=== PATIENT | female | born 1995 | race Caucasian/White ===

== ENCOUNTER 2019-05-07 15:25 | Inpatient (IN) | payer MEDICAID, SELFPAY ==
[2019-05-07] VITALS (28 sets, daily range): BP systolic 127–173; BP diastolic 68–122; PULSE 65–96; RESP 16–18; TEMP 35.6–36.7; O2SAT 97–100; BMI 24.6
[2019-05-07] MEDS: Lactated Ringers 1,000 ML 50 ML IV (16:00)
[2019-05-07 16:32] LABS: Hematocrit 46.9 % (37-47); Hemoglobin 15.2 g/dL (12.0-15.0); Mean Corp Hgb Conc 32.4 g/dL (32-36); Mean Corpuscular Hgb 28.3 pg (27.0-32.0); Mean Corpuscular Volume 87.3 fL (81-99); Platelet Count 472 K/mm3 (150-450); RBC Distribution Width CV 14.6 % (11.6-14.6); RBC Distribution Width SD 46.3 fl (35.1-43.9); Red Blood Count 5.37 M/mm3 (4.2-5.4); White Blood Count 14.5 K/mm3 (4.4-11.0)
[2019-05-07] MEDS: Magnesium Sulfate 4gm/100mL 4 GM/100 ML IV.SOLN. IV (17:00)
[2019-05-07] MEDS: Magnesium Sulfate 20 GM/500 ML BAG IV (17:00)
[2019-05-07] MEDS: Sodium Citrate/Citric Acid 30 ML UDC PO (17:04)
[2019-05-07 17:17] LABS: AST(SGOT) 46 U/L (15-37); Alanine Aminotransfer ALT/SGPT 37 U/L (13-56); Creatinine, Serum 0.89 mg/dL (0.55-1.02); EST Glomerular Filtration Rate 81 mL/min (>60); Est Glom Filt Rate - Afr Amer 99 mL/min (>60); Estimated Creatinine Clearance 90.46 ml/min; Uric Acid 10.1 mg/dL (2.6-6.0)
[2019-05-07 17:23] LABS: Rubella IgG < 0.2 IU/mL
[2019-05-07 17:24] LABS: ALB/GLOB Ratio 0.7 RATIO (0.9-2.4); AST(SGOT) 44 U/L (15-37); Alanine Aminotransfer ALT/SGPT 37 U/L (13-56); Alkaline Phosphatase 210 U/L (45-117); Anion Gap 8 (5-15); BUN 18 mg/dL (7-18); Calcium,Total 9.1 mg/dL (8.5-10.1); Chloride 103 mmol/L (98-107); EST Glomerular Filtration Rate 81 mL/min (>60); Est Glom Filt Rate - Afr Amer 98 mL/min (>60); Estimated Creatinine Clearance 89.45 ml/min; Globulin 4.6 g/dL (2.2-4.2); Glucose 76 mg/dL (74-106); Potassium 5.3 mmol/L (3.5-5.1); Protein, Total 7.6 g/dL (6.4-8.2); Sodium Level 134 mmol/L (136-145)
[2019-05-07 17:30] LABS: Color, Urine Yellow (Yellow); Glucose, Dipstick Normal (Normal); Ketone-Dipstick 50 mg/dl (Negative); Leukocyte Esterase-Dipstick 25 /ul (Negative); Nitrite-Dipstick Negative (Negative); Occult Blood-Urine 25 /ul (Negative); Protein-Dipstick 500 mg/dl (Negative); Urine Bilirubin Dipstick Negative (Negative); Urine Clarity Sl. Cloudy (Clear); Urine Urobilinogen Normal (Normal)
[2019-05-07 17:45] LABS: Protein, Urine (Random) 1984.1 mg/dL (<11.9); Protein:Creat Ratio 12324 mg/g CRE (0-200)
[2019-05-07 17:49] LABS: Amphetamine Urine VISTA NEGATIVE (<1000 ng/mL); Barbiturate Urine VISTA NEGATIVE (< 200 ng/mL); Benzodiazepine Urine VISTA NEGATIVE (< 200 ng/mL); Cocaine Urine VISTA NEGATIVE (< 300 ng/mL); Ecstacy Urine VISTA NEGATIVE (< 500 ng/mL); Methadone Urine VISTA NEGATIVE (< 300 ng/mL); PCP Urine VISTA NEGATIVE (< 25 ng/mL); THC Urine VISTA NEGATIVE (< 50 ng/mL); Vista UDS pH Range 6
[2019-05-07 17:58] LABS: Group B Strep DNA By PCR Negative (Negative); Internal Control PASS; Probe Check PASS; Specimen Processing Control PASS
[2019-05-07 17:59] LABS: Bacteria 3+ /hpf (None Seen); Hyaline Cast 0-5 SEEN /lpf (0-5); Mucous, Urine 3+ /hpf (<or=2+); Red Blood Cells-Urine 0-5 SEEN /hpf (0-5); Squamous Epithelial Cells - UA 0-5 SEEN /hpf (5-10); White Blood Cells 0-5 SEEN /hpf (0-5)
--- NOTE | 2019-05-07 18:21 | HP.PCM_ITS ---
- Problem List (1) Severe pre-eclampsia Status: Acute (2) 34 weeks gestation of Status: Acute (3) Non-reassuring status Status: Acute History Date of Admission: 05/07/19 History of this : This is a 23 year-old, G 3, P 2, at 34 weeks gestational age who presented to the office as a new patient. She had been seeing a line camera operator who was managing her . She had known pre-eclampsia with an elevated protein/creatinine ratio. She presented as a new patient to our office for elevated blood pressures in . In the office her blood pressures were severe range. She had a BPP of 2/8. She was sent over to L&D for further management. On L&D she had persistent severe range BP's that were in the 200's/100's. She received 2 doses of IV labetalol, and her blood pressures remained in the severe range. She denied STRONG, vision changes, RUQ pain, nausea, vomiting. FHT showed an isolated deceleration, followed by minimal variability. [place] showed rolling contractions. She denied abd pain or VB. Allergies No Known Allergies Allergy (Verified 05/07/19 15:56) Home Medications: Home Medications Magnesium 400 mg PO DAILY 05/07/19 Pnv No.95/Ferrous Fum/Folic AC [ Vitamin Tablet] 1 tab PO DAILY 05/07/19 Smoking Status: Never smoker Alcohol: None Number of Fetus(es): 1 History Past Pregnancies: Past Pregnancies Delivery Date Name GA/Weeks Outcome Route Weight Infant Gender Labor Length Anesthesia Delivery Location Provider FOB term term Labs: Drawn on admission Expected Delivery Method: JUAN Section Review of Systems Eyes: Denies: Blurred vision, Double vision, Vision Change HEENT: Denies: Head Aches Cardiovascular: Denies: Chest Pain Respiratory: Denies: Shortness of Breath Gastrointestinal: Denies: Abdominal Pain, Nausea, Vomiting Neurological: Denies: Blurred vision, Double vision Physical Exam Vitals: Vital Signs Temp Pulse Resp BP Pulse Ox 97.1 F L 83 16 164/122 H 97 05/07/19 17:00 05/07/19 17:00 05/07/19 17:00 05/07/19 17:00 05/07/19 17:00 General: Alert, No apparent distress HEENT: Atraumatic Abdomen: Soft, Non Tender, Gravid Extremities:: No edema Neurological: Neuro grossly intact [employer]: Normal external genitalia Estimated gestational size: Appropriate for gestational size Assessment/Plan All Active Problems Severe pre-eclampsia (Acute) 34 weeks gestation of (Acute) Non-reassuring status (Acute) This is a 23 year-old, G 3, P 2, at 34 weeks gestational age who presented as a new patient with pre-eclampsia with severe features. BP's were persistently in the severe range after 2 doses of IV labetalol. She had known pre-eclampsia with an elevated p/c ratio. BPP 2/8 and FHT non-reassuring. Decision was made to proceed with an emergent . - IV antihypertensives prn per protocol - Mag gtt for seizure prophylaxis - labs and pre-e labs drawn on admission
--- NOTE | 2019-05-07 18:42 | OP.PCM_ITS ---
Problem List (1) Severe pre-eclampsia Status: Acute (2) 34 weeks gestation of Status: Acute (3) Non-reassuring status Status: Acute Report of Operation Date of Procedure: 05/07/19 Pre-Operative Diagnosis: Pre-eclampsia with severe features at 34 weeks gestation, 2/8 BPP, non-reassuring status, limited care with playback operator Post-Operative Diagnosis: As above Surgery/Procedure Performed:: PLTCS via pfannenstiel incision Description of Surgical Findings:: VFI in vertex position. Clear fluid. Normal appearing uterus, bilateral tubes and bilateral ovaries. Placenta was ragged appearing raising concern for an abruption. Type of Anesthesia:: Spinal Specimen's removed: Placenta Drains: Martinez Estimated Blood Loss (mL): 800 Description of Procedure: Patient was prepped and draped in the usual sterile fashion in the dorsal position with a leftward tilt. Spinal anesthesia was found to be adequate. Scalpel was used to incise the skin using a Pfannenstiel incision. This incision was then carried down to the fascial layer. The fascia was incised in the midline using the scalpel. The fascia was then extended laterally using Avilez scissors. Wesley clamps were then used to elevate the fascia and dissected the fascia bluntly and sharply from the rectus muscles both cephalad and caudad. The rectus muscles were then entered in the midline. The peritoneum was then entered sharply. The peritoneal incision was then extended superiorly and inferiorly with good visualization of the bladder. A bladder blade was placed. A bladder flap was created. A low transverse incision was made on the uterus. Clear fluid was present. Viable female infant was delivered in vertex position without any difficulty. The cord was clamped and cut immediately and she was handed off to the nursery staff. Cord gases were collected. The placenta was manually removed from the uterus and it was very ragged appearing. In looking at the placenta, there was a possible abruption. The placenta was sent to pathology for review. The uterus was exteriorized from the abdomen and cleared of all clot and debris. The uterine incision was then closed in a double layer fashion. Several additional [id number] sutures were placed for hemostasis. The uterus, bilateral ovaries, bilateral tubes were normal-appearing. The uterus was then placed back in the abdomen. The uterine incision was noted to be hemostatic. Arrista was placed over the uterine incision. The peritoneum was then closed in usual fashion. The fascia was then closed in usual fashion. The subcutaneous layer was irrigated. The subcutaneous layer was then closed in usual fashion. And the skin was closed in subcuticular fashion. Patient tolerated the procedure well and was taken to the recovery room in stable condition. Grafts/Implants Used: None - Complications None - Admit VTE Documentation VTE Present on Admission: No VTE Mechan Device Prophylaxis: SCD's VTE Pharm Prophylaxis ordered?: No Delivery Classification: JUAN Gestational age: 34 weeks Type of Anesthesia:: Spinal Special Medications: None Implants Used: None Amniotic Fluid Description: Clear Placenta Disposition: Sent to Pathology Drain: Martinez to straight drain Cord Entanglement: Around neck x 1, loose Nuchal Cord Compression: Without compression Cord Vessel Description: 3 Vessels Infant Gender: Female Antibiotic Given: Ancef 2 grams IV x1 Pt instructed on risks of surgery: Bleeding, Infection, Need for Future C- Sections, Injury to surrounding structure(s) including bowel and bladder Complications: None
[2019-05-07] MEDS: Oxytocin 30 units/NS 500 ml 30 UNITS/500 ML IV.SOLN 167 UNITS IV (19:00)
[2019-05-07] MEDS: Labetalol 100 MG Tablet PO (19:30)
[2019-05-07 19:42] LABS: Chlamydia Trachomatis by PCR Negative (Negative); Neisserai gonorrhoeae by PCR Negative (Negative); Probe Check PASS; Sample Adequacy Control PASS; Specimen Processing Control PASS
--- NOTE | 2019-05-07 19:46 | NURSING ---
Addendum entered by Almaz Lui 05/07/19 19:50: Ancef at 1716 Original Note: anesthesia gave ancef 2gm in OR LR wide open in transport to OR
--- NOTE | 2019-05-07 19:49 | NURSING ---
Per Dr. Rojas no oral fluid restrictions LR to be at 75 while [facility] is running
[2019-05-07] MEDS: hydrALAZINE 20 MG/ML Vial 10 MG IV (20:05)
[2019-05-08] VITALS (71 sets, daily range): BP systolic 118–225; BP diastolic 56–110; PULSE 69–130; RESP 12–20; TEMP 36.3–36.9; O2SAT 95–100
[2019-05-08 00:25] LABS: HIV - WCH Non-Reactive (Nonreactive); Hepatitis B Surface Antigen Non-Reactive (Nonreactive); Hepatitis C Antibody Non-Reactive (Nonreactive)
[2019-05-08 02:21] LABS: Rapid Plasmin Reagin (RPR) NONREACTIVE (NONREACTIVE)
[2019-05-08] MEDS: Magnesium Sulfate 20 GM/500 ML BAG IV ×2 (02:40→12:48)
[2019-05-08 05:50] LABS: Hemoglobin 12.7 g/dL (12.0-15.0); Mean Corp Hgb Conc 32.6 g/dL (32-36); Mean Corpuscular Hgb 28.2 pg (27.0-32.0); Mean Corpuscular Volume 86.5 fL (81-99); Mean Platelet Vol. 10.2 fl (6.2-12.0); Platelet Count 358 K/mm3 (150-450); RBC Distribution Width CV 14.7 % (11.6-14.6); RBC Distribution Width SD 46.3 fl (35.1-43.9); Red Blood Count 4.51 M/mm3 (4.2-5.4); White Blood Count 16.5 K/mm3 (4.4-11.0)
[2019-05-08] MEDS: Lactated Ringers 1,000 ML 100 ML IV (08:10)
--- NOTE | 2019-05-08 09:18 | NURSING ---
0915- patient standing up at side of bed. reports feeling dizzy and lightheaded. peripad changed and underwear on. patient back to bed after standing at the bed.
[2019-05-08] MEDS: Labetalol 100 MG Tablet PO (09:37)
--- NOTE | 2019-05-08 12:30 | PCM.PN.OB ---
Patient Problems: Active and Suspected Problems Severe pre-eclampsia (Acute) 34 weeks gestation of (Acute) Non-reassuring status (Acute) Subjective: Patient denies complaints but is just waking up. Her family came to visit for lunch. - Physical Exam Vitals/I&O's: Vital Signs Temp Pulse Resp BP Pulse Ox 97.8 F 75 14 149/89 H 98 05/08/19 08:07 05/08/19 11:40 05/08/19 11:40 05/08/19 11:40 05/08/19 11:40 Oxygen Flow Rate (L/min) 10 Oxygen Delivery Method Room Air Weight: 154 lb 15.759 oz Body Mass Index (BMI) 24.6 Intake and Output for Last 24 Hours 05/06/19 05/07/19 05/08/19 23:59 23:59 23:59 Intake Total 3120.83 / 3120.83 3367.51 / 3367.51 Output Total 1885 / 1885 2725 / 2725 Balance 1235.83 / 1235.83 642.51 / 642.51 General: Alert, Oriented x3 Abdomen: Soft, Non Tender, Non-Distended - ff mid & below umb; incision - bandage c/d/i Extremities: No Calf Tenderness Laboratory Results 05/07/19 16:00: WBC 14.5 H, RBC 5.37, Hgb 15.2 H, Hct 46.9, MCV 87.3, MCH 28.3, MCHC 32.4, RDW Std Deviation 46.3 H, RDW Coeff of Tamir 14.6, Plt Count 472 H, MPV 11.0 05/07/19 16:00: PT Cancelled, INR Cancelled, APTT Cancelled 05/07/19 16:00: Creatinine 0.89, Estim Creat Clear Calc 90.46, Est GFR (MDRD) Af Amer 99, Est GFR (MDRD) Non-Af 81, Uric Acid 10.1 H, AST 46 H, ALT 37 05/07/19 16:00: Sodium 134 L, Potassium 5.3 H, Chloride 103, Carbon Dioxide 23.0, Anion Gap 8, BUN 18, Creatinine 0.90, Estim Creat Clear Calc 89.45, Est GFR (MDRD) Af Amer 98, Est GFR (MDRD) Non-Af 81, BUN/Creatinine Ratio 20.0, Glucose 76, Calcium 9.1, Total Bilirubin 0.40, AST 44 H, ALT 37, Alkaline Phosphatase 210 H, Total Protein 7.6, Albumin 3.0 L, Globulin 4.6 H, Albumin/Globulin Ratio 0.7 L 05/07/19 16:00: Blood Type O POSITIVE, Antibody Screen NEGATIVE 05/07/19 16:00: Rubella IgG Antibody < 0.2 05/07/19 16:00: RPR NONREACTIVE 05/07/19 16:00: Hep Bs Antigen Non-Reactive, Hepatitis C Antibody Non-Reactive, HIV 1&2 Antibody Non-Reactive 05/07/19 16:00: Crossmatch See Detail 05/07/19 16:05: Chlam trachomat DNA PCR Negative, N.gonorrhoeae DNA (PCR) Negative, Group B Strep DNA Negative, Specimen Comment Not Reportable 05/07/19 17:18: U Random Total Protein 1984.1 H, Urine Creatinine 161.00, Protein/Creatinin Ratio 71403 H 05/07/19 17:18: Urine Color Yellow, Urine Clarity Sl. Cloudy, Urine pH 7.0, Ur Specific [place] 1.010, Urine Protein 500 H, Urine Glucose (UA) Normal, Urine Ketones 50 H, Urine Occult Blood 25 H, Urine Nitrite Negative, Urine Bilirubin Negative, Urine Urobilinogen Normal, Ur Leukocyte Esterase 25 H, Urine RBC 0-5 SEEN, Urine WBC 0-5 SEEN, Ur Squamous Epith Cells 0-5 SEEN, Urine Bacteria 3+, Hyaline Casts 0-5 SEEN, Urine Mucus 3+ 05/07/19 17:18: Urine Opiates Screen NEGATIVE, Urine Methadone Screen NEGATIVE, Ur Barbiturates Screen NEGATIVE, Ur Phencyclidine Scrn NEGATIVE, Ur Amphetamines Screen NEGATIVE, U Methamphetamin-MDMA NEGATIVE, U Benzodiazepines Scrn NEGATIVE, Urine Cocaine Screen NEGATIVE, U Cannabinoids Screen NEGATIVE, Ur Drug Screen Comment 05/08/19 05:45: WBC 16.5 H, RBC 4.51, Hgb 12.7, Hct 39.0, MCV 86.5, MCH 28.2, MCHC 32.6, RDW Std Deviation 46.3 H, RDW Coeff of Tamir 14.7 H, Plt Count 358, MPV 10.2 Current Medications Acetaminophen (Tylenol) 1,000 mg PO Q8H PRN PRN Reason: Pain Score 1-3/10 Al Hydroxide/Mg Hydroxide (Mylanta Ii) 15 - 30 ml PO Q4H PRN PRN PRN Reason: INDIGESTION Bisacodyl (Dulcolax) 10 mg RECTAL UD PRN PRN Reason: If no BM Calcium Gluconate () 1 gm IV X1 PRN PRN Reason: MAGNESIUM TOXICITY Hydrocortisone (Hytone) 1 applic TOPICAL TID PRN PRN; Protocol PRN Reason: Discomfort Magnesium Sulfate (20gm/500ml) 20 gm in 500 mls @ 50 mls/hr IV .Q10H NE Last Infusion: 05/08/19 11:40 Dose: 2 gm/hr, 50 mls/hr Documented by: Naloxone HCl 4 mg/ Dextrose 504 mls @ 0 mls/hr IV .Q0M PRN; Protocol PRN Reason: Respiratory depression Lactated Ringer's () 1,000 mls @ 60 mls/hr IV .[id number] [facility] Labetalol HCl (Trandate) 20 mg IV Q10M PRN PRN PRN Reason: ELEVATED BP Last Admin: 05/07/19 22:49 Dose: 20 mg Documented by: Labetalol HCl (Trandate) 200 mg PO TID [facility] Methylergonovine Maleate (Methergine) 0.2 mg IM X1 PRN PRN Reason: Uterine Atony Midazolam HCl (Versed) 2 mg IV Q5M PRN PRN Reason: SEIZURE Naloxone HCl (Narcan) 0.02 mg IV Q1M PRN PRN Reason: RR <10 and pt unresponsive Ondansetron HCl (Zofran) 4 mg IV Q4H PRN PRN PRN Reason: Nausea Oxycodone HCl (Oxyir) 5 - 10 mg PO Q4H PRN PRN PRN Reason: Pain Score 4-10/10 Prochlorperazine Edisylate (Compazine Iv) 10 mg IV Q6H PRN PRN PRN Reason: NAUSEA Senna/Docusate Sodium (Senokot-S, Angela-Colace) 0 tablet PO DAILY PRN PRN Reason: Constipation Simethicone (Mylicon) 80 mg PO PCHS PRN PRN Reason: Indigestion/stomach pain Sodium Chloride () 5 - 15 ml IV UD PRN PRN Reason: SALINE FLUSH Medical Necessity - Tobacco Use Smoking Status: Never smoker Assessment/Plan All Active Problems Severe pre-eclampsia (Acute) 34 weeks gestation of (Acute) Non-reassuring status (Acute) POD#1 Severe preE - on magnesium for 24 hours PP. Will increase labetalol to 200mg tid. Heme - HDS, CBC reviewed. - adequate UOP. GI - ADAT. Routine care.
[2019-05-08] MEDS: Labetalol 100 MG Tablet 200 MG PO (13:42)
--- NOTE | 2019-05-08 15:45 | CASEMGMT ---
Social Work Labor and Delivery Consult received this date due to Baby transferred to [facility]. Consult for resources and support. Spoke with Lacy Hinton RN who reports mother of baby (MOB) had wanted a home delivery as was the case for MOB's 2 prior deliveries. RN reports MOB had been following with a weld lay out worker during and had desired a home delivery. RN also reports patient financial services for [facility] saw MOB and father of baby (FOB) this date about applying for medicaid but thus far family not seeming to be interested in applying for medical coverage. Chart reviewed. Noted that delivery was at 34 weeks and via caesarian section, which was on the opposite spectrum of type of delivery the MOB had desired. Per conversation with RN, MOB's blood pressures are up this afternoon and MOB is quite tired. Per RN, it may be better for social services specialist to wait to see MOB. Plan: See MOB tomorrow, 05.09.2019, as time allows. -KELBY Wood, DEVELOPMENT CHEMIST
[2019-05-08] MEDS: NIFEdipine 30 MG Tablet PO ×2 (17:57→17:59)
[2019-05-08] MEDS: Lactated Ringers 1,000 ML 60 ML IV (19:00)
--- NOTE | 2019-05-08 19:41 | PCM.PN.OB ---
Patient Problems: Active and Suspected Problems Severe pre-eclampsia (Acute) 34 weeks gestation of (Acute) Non-reassuring status (Acute) Subjective: Patient denies headache, blurry vision, CP or SOB. She denies feeling unwell but is starting to get stressed about her blood pressure. - Physical Exam Vitals/I&O's: Vital Signs Temp Pulse Resp BP Pulse Ox 97.9 F 74 12 158/93 H 99 05/08/19 12:45 05/08/19 18:22 05/08/19 18:22 05/08/19 18:22 05/08/19 17:47 Oxygen Flow Rate (L/min) 10 Oxygen Delivery Method Room Air Weight: 154 lb 15.759 oz Body Mass Index (BMI) 24.6 Intake and Output for Last 24 Hours 05/06/19 05/07/19 05/08/19 23:59 23:59 23:59 Intake Total 3120.83 / 3120.83 5403.66 / 5403.66 Output Total 1885 / 1885 4525 / 4525 Balance 1235.83 / 1235.83 878.66 / 878.66 General: Alert, Oriented x3 Neurological: Cranial nerves II-XII grossly intact Laboratory Results 05/07/19 16:00: RPR NONREACTIVE 05/07/19 16:00: Hep Bs Antigen Non-Reactive, Hepatitis C Antibody Non-Reactive, HIV 1&2 Antibody Non-Reactive 05/07/19 16:05: Chlam trachomat DNA PCR Negative, N.gonorrhoeae DNA (PCR) Negative 05/08/19 05:45: WBC 16.5 H, RBC 4.51, Hgb 12.7, Hct 39.0, MCV 86.5, MCH 28.2, MCHC 32.6, RDW Std Deviation 46.3 H, RDW Coeff of Tamir 14.7 H, Plt Count 358, MPV 10.2 Current Medications Acetaminophen (Tylenol) 1,000 mg PO Q8H PRN PRN Reason: Pain Score 1-3/10 Al Hydroxide/Mg Hydroxide (Mylanta Ii) 15 - 30 ml PO Q4H PRN PRN PRN Reason: INDIGESTION Bisacodyl (Dulcolax) 10 mg RECTAL UD PRN PRN Reason: If no BM Calcium Gluconate () 1 gm IV X1 PRN PRN Reason: MAGNESIUM TOXICITY Hydralazine HCl (Apresoline Iv) 10 mg IV Q20M PRN; Protocol PRN Reason: SBP>160/110mmHg Hydrocortisone (Hytone) 1 applic TOPICAL TID PRN PRN; Protocol PRN Reason: Discomfort Naloxone HCl 4 mg/ Dextrose 504 mls @ 0 mls/hr IV .Q0M PRN; Protocol PRN Reason: Respiratory depression Lactated Ringer's () 1,000 mls @ 60 mls/hr IV .[id number] [facility] Labetalol HCl (Trandate) 20 mg IV Q10M PRN PRN PRN Reason: ELEVATED BP Last Admin: 05/07/19 22:49 Dose: 20 mg Documented by: Labetalol HCl (Trandate) 200 mg PO TID [facility] Last Admin: 05/08/19 13:42 Dose: 200 mg Documented by: Labetalol HCl (Trandate) 20 - 40 mg IV Q10M PRN PRN; Protocol PRN Reason: BP>160/110mmHg Methylergonovine Maleate (Methergine) 0.2 mg IM X1 PRN PRN Reason: Uterine Atony Midazolam HCl (Versed) 2 mg IV Q5M PRN PRN Reason: SEIZURE Naloxone HCl (Narcan) 0.02 mg IV Q1M PRN PRN Reason: RR <10 and pt unresponsive Nifedipine (Procardia) 10 - 20 mg PO Q20M PRN; Protocol PRN Reason: SBP>160/110mmHg Last Admin: 05/08/19 14:57 Dose: 10 mg Documented by: Nifedipine (Procardia Xl) 30 mg PO DAILY [facility] Last Admin: 05/08/19 17:59 Dose: 30 mg Documented by: Ondansetron HCl (Zofran) 4 mg IV Q4H PRN PRN PRN Reason: Nausea Oxycodone HCl (Oxyir) 5 - 10 mg PO Q4H PRN PRN PRN Reason: Pain Score 4-10/10 Prochlorperazine Edisylate (Compazine Iv) 10 mg IV Q6H PRN PRN PRN Reason: NAUSEA Senna/Docusate Sodium (Senokot-S, Angela-Colace) 0 tablet PO DAILY PRN PRN Reason: Constipation Simethicone (Mylicon) 80 mg PO PCHS PRN PRN Reason: Indigestion/stomach pain Sodium Chloride () 5 - 15 ml IV UD PRN PRN Reason: SALINE FLUSH Medical Necessity - Tobacco Use Smoking Status: Never smoker Assessment/Plan All Active Problems Severe pre-eclampsia (Acute) 34 weeks gestation of (Acute) Non-reassuring status (Acute) POD#1 with severe preE Severe preE - s/p 24 hours magnesium sulfate. On labetalol & procardia XL. Patient with severe range blood pressures so hydralazine IV and procardia IR given. Discussed case with hospitalist for severe blood pressures. Patient persisted with severe range blood pressures so nicardepine drip ordered after discussion with . Patient to be transferred to the ICU.
[2019-05-08] MEDS: hydrALAZINE 20 MG/ML Vial IV (20:19)
--- NOTE | 2019-05-08 20:27 | PCM.CONS.GEN ---
Reason for Consult History of Present Illness: The patient is a 23 year old F [] Past Medical History Allergies No Known Allergies Allergy (Verified 05/07/19 15:56) Home Medications: Ambulatory Orders Medication Instructions Recorded Magnesium 400 mg PO DAILY 05/07/19 Pnv No.95/Ferrous Fum/Folic AC 1 tab PO DAILY 05/07/19 [ Vitamin Tablet] Smoking Status: Never smoker Alcohol: None Patient Problems: Active and Suspected Problems Severe pre-eclampsia (Acute) 34 weeks gestation of (Acute) Non-reassuring status (Acute) - Physical Exam Vitals/I&O's: Vital Signs Temp Pulse Resp BP Pulse Ox 97.9 F 82 12 179/96 H 99 05/08/19 12:45 05/08/19 19:29 05/08/19 18:22 05/08/19 19:29 05/08/19 17:47 Oxygen Flow Rate (L/min) 10 Oxygen Delivery Method Room Air Weight: 70.3 kg Body Mass Index (BMI) 24.6 Intake and Output for Last 24 Hours 05/06/19 05/07/19 05/08/19 23:59 23:59 23:59 Intake Total 3120.83 / 3120.83 5403.66 / 5403.66 Output Total 1885 / 1885 5025 / 5025 Balance 1235.83 / 1235.83 378.66 / 378.66 Laboratory Results 05/07/19 16:00: RPR NONREACTIVE 05/07/19 16:00: Hep Bs Antigen Non-Reactive, Hepatitis C Antibody Non-Reactive, HIV 1&2 Antibody Non-Reactive 05/08/19 05:45: WBC 16.5 H, RBC 4.51, Hgb 12.7, Hct 39.0, MCV 86.5, MCH 28.2, MCHC 32.6, RDW Std Deviation 46.3 H, RDW Coeff of Tamir 14.7 H, Plt Count 358, MPV 10.2 Current Medications Acetaminophen (Tylenol) 1,000 mg PO Q8H PRN PRN Reason: Pain Score 1-3/10 Al Hydroxide/Mg Hydroxide (Mylanta Ii) 15 - 30 ml PO Q4H PRN PRN PRN Reason: INDIGESTION Bisacodyl (Dulcolax) 10 mg RECTAL UD PRN PRN Reason: If no BM Calcium Gluconate () 1 gm IV X1 PRN PRN Reason: MAGNESIUM TOXICITY Hydralazine HCl (Apresoline Iv) 10 mg IV Q20M PRN; Protocol PRN Reason: SBP>160/110mmHg Last Admin: 05/08/19 19:29 Dose: 10 mg Documented by: Hydralazine HCl (Apresoline Iv) 20 mg IV X1 ONE Stop: 05/08/19 20:23 Hydrocortisone (Hytone) 1 applic TOPICAL TID PRN PRN; Protocol PRN Reason: Discomfort Naloxone HCl 4 mg/ Dextrose 504 mls @ 0 mls/hr IV .Q0M PRN; Protocol PRN Reason: Respiratory depression Lactated Ringer's () 1,000 mls @ 60 mls/hr IV .[id number] NE Nicardipine HCl 25 mg/ Sodium (Chloride) 250 mls @ 50 mls/hr CONT INF .Q5H [facility]; Protocol Labetalol HCl (Trandate) 20 - 40 mg IV Q10M PRN PRN; Protocol PRN Reason: BP>160/110mmHg Methylergonovine Maleate (Methergine) 0.2 mg IM X1 PRN PRN Reason: Uterine Atony Midazolam HCl (Versed) 2 mg IV Q5M PRN PRN Reason: SEIZURE Naloxone HCl (Narcan) 0.02 mg IV Q1M PRN PRN Reason: RR <10 and pt unresponsive Nifedipine (Procardia) 10 - 20 mg PO Q20M PRN; Protocol PRN Reason: SBP>160/110mmHg Last Admin: 05/08/19 19:39 Dose: 20 mg Documented by: Nifedipine (Procardia Xl) 30 mg PO DAILY [facility] Last Admin: 05/08/19 17:59 Dose: 30 mg Documented by: Ondansetron HCl (Zofran) 4 mg IV Q4H PRN PRN PRN Reason: Nausea Oxycodone HCl (Oxyir) 5 - 10 mg PO Q4H PRN PRN PRN Reason: Pain Score 4-10/10 Prochlorperazine Edisylate (Compazine Iv) 10 mg IV Q6H PRN PRN PRN Reason: NAUSEA Senna/Docusate Sodium (Senokot-S, Angela-Colace) 0 tablet PO DAILY PRN PRN Reason: Constipation Simethicone (Mylicon) 80 mg PO PCHS PRN PRN Reason: Indigestion/stomach pain Sodium Chloride () 5 - 15 ml IV UD PRN PRN Reason: SALINE FLUSH Assessment/Plan All Active Problems Severe pre-eclampsia (Acute) 34 weeks gestation of (Acute) Non-reassuring status (Acute)
--- NOTE | 2019-05-08 20:40 | NURSING ---
Pt transfered to ICU
[2019-05-09] VITALS (71 sets, daily range): BP systolic 125–182; BP diastolic 73–110; PULSE 86–152; RESP 16–23; TEMP 36.2–37.3; O2SAT 95–99
[2019-05-09] MEDS: Lactated Ringers 1,000 ML 60 ML IV (00:21)
[2019-05-09 05:00] LABS: Absolute Lymphocyte Count 2.11 X10^3/uL (0.83-4.51); Absolute Neutrophil Count 13.3 X10^3/uL (2.0-7.7); Basophil# 0.06 X10^3/uL; Basophil% 0.4 % (0-1); Eosinophil# 0.03 X10^3/uL; Eosinophils% 0.2 % (0-5); Hematocrit 40.9 % (37-47); Hemoglobin 13.7 g/dL (12.0-15.0); Lymphocyte # 2.11 X10^3/ul (4.0); Lymphocyte % 12.3 % (19-41); Mean Corp Hgb Conc 33.5 g/dL (32-36); Mean Corpuscular Hgb 28.3 pg (27.0-32.0); Mean Corpuscular Volume 84.5 fL (81-99); Mean Platelet Vol. 10.2 fl (6.2-12.0); Monocyte# 1.46 X10^3/uL; Monocyte% 8.5 % (0-10); NRBC Flagged by Analyzer 0 % (0-5); Neutrophil # 13.32 X10^3/uL (2.7-7.7); Neutrophil % 77.7 % (47-70); Platelet Count 491 K/mm3 (150-450); RBC Distribution Width CV 14.5 % (11.6-14.6); RBC Distribution Width SD 44.2 fl (35.1-43.9); Red Blood Count 4.84 M/mm3 (4.2-5.4); White Blood Count 17.1 K/mm3 (4.4-11.0)
[2019-05-09 05:23] LABS: AST(SGOT) 37 U/L (15-37); Alanine Aminotransfer ALT/SGPT 31 U/L (13-56); Albumin, Serum 2.3 g/dL (3.2-5.0); Alkaline Phosphatase 140 U/L (45-117); Anion Gap 13 (5-15); BUN 12 mg/dL (7-18); Bilirubin, Direct 0.06 mg/dL (0.00-0.30); Calcium,Total 8.3 mg/dL (8.5-10.1); Chloride 101 mmol/L (98-107); Creatinine, Serum 0.63 mg/dL (0.55-1.02); EST Glomerular Filtration Rate 121 mL/min (>60); Est Glom Filt Rate - Afr Amer 147 mL/min (>60); Estimated Creatinine Clearance 127.79 ml/min; Globulin 4.2 g/dL (2.2-4.2); Glucose 91 mg/dL (74-106); Potassium 4.1 mmol/L (3.5-5.1); Protein, Total 6.5 g/dL (6.4-8.2); Sodium Level 136 mmol/L (136-145); T4 Free Direct 0.82 ng/dL (0.76-1.46); Thyroid Stim Hormone (TSH) 6.05 uIU/mL (0.358-3.74)
--- NOTE | 2019-05-09 06:37 | PCM.CON.CC ---
Reason for Consult Date of Consultation: 05/09/19 Reason for Consultation: Hypertensive emergency History of Present Illness: The patient is a 23-year-old female, with a history as outlined below, who initially presented to the hospital on May 07 in the setting of severe preeclampsia with nonreassuring status, requiring emergent . Postprocedure, attempts to control the patient's blood pressures were difficult, despite the use of Procardia, labetalol and hydralazine. The patient was then transferred to the medical intensive care unit for the initiation of a nicardipine drip. The patient denies any pre-existing hypertension. However, she does report a great deal of situational elevations in her blood pressure readings along with what she describes as a white coat hypertension. She is also experiencing a great deal of anxiety at the present time, as each of her two previous births took place at home. Although the patient is asymptomatic from a respiratory and cardiac perspective, she does endorse the continued presence of anxiety. She is anxious to be discharged home so that she can finally see her baby. She remains on a continuous infusion of nicardipine and is scheduled to receive a p.o. dose of Procardia this morning. Past Medical History Allergies No Known Allergies Allergy (Verified 05/07/19 15:56) Home Medications: Ambulatory Orders Medication Instructions Recorded Magnesium 400 mg PO DAILY 05/07/19 Pnv No.95/Ferrous Fum/Folic AC 1 tab PO DAILY 05/07/19 [ Vitamin Tablet] Smoking Status: Never smoker Alcohol: None Review of Systems Constitutional: Denies: Chills, Fever, Weight Change HEENT: Denies: Head Aches, Sinus Congestion, Sinus Drainage Cardiovascular: Denies: Chest Pain, Palpitations Respiratory: Denies: Cough, Shortness of breath at rest, Sputum production Gastrointestinal: Denies: Abdominal Pain, Nausea, Vomiting Genitourinary: Denies: Dysuria Musculoskeletal: Denies: Joint Pain, Joint Tenderness Skin: Denies: Rash, Wounds Neurological: Denies: Numbness, Tingling, Focal weakness Psychiatric: Reports: Anxiety Hematologic/ Lymphatic: Denies: Easy Bruising, Easy Bleeding Patient Problems: Active and Suspected Problems Severe pre-eclampsia (Acute) 34 weeks gestation of (Acute) Non-reassuring status (Acute) Objective: The patient's most recent lab work, culture data and imaging studies have all been personally reviewed. - Physical Exam Vitals/I&O's: Vital Signs Temp Pulse Resp BP Pulse Ox 98.4 F 120 H 22 H 156/92 H 96 05/09/19 00:00 05/09/19 05:00 05/09/19 05:00 05/09/19 05:15 05/09/19 05:00 Oxygen Flow Rate (L/min) 10 Oxygen Delivery Method Room Air Weight: 154 lb 15.759 oz Body Mass Index (BMI) 24.6 Intake and Output for Last 24 Hours 05/07/19 05/08/19 05/09/19 23:59 23:59 23:59 Intake Total 3120.83 / 3120.83 5467.83 / 5474.08 450.50 / 450.50 Output Total 1885 / 1885 5025 / 5025 Balance 1235.83 / 1235.83 442.83 / 449.08 450.50 / 450.50 General: Alert, Cooperative, No apparent distress, - - Mother is present at the bedside as well. HEENT: Atraumatic, PERRLA, Normocephalic Oral: No Gingival or Mucosal Lesions/ Ulcerations Neck: Supple, No Nodes, Trachea Midline Lungs: Normal air movement, No rhonchi, No wheeze, No rales Cardiovascular: Normal S1, Normal S2, No murmurs, Tachycardic Abdomen: Soft, Non Tender Extremities: No clubbing, No cyanosis, No edema Skin: Incision - C/D/I Musculoskeletal: No Muscle Wasting Lymphatic: No Cervical, Supraclavicular, or Inguinal Adenopathy Neurological: Cranial nerves II-XII grossly intact, Neuro grossly intact Psych/Mental Status: Anxious Labs (Last 48 Hours) 05/07/19 05/07/19 05/07/19 16:00 16:00 16:00 WBC 14.5 H RBC 5.37 Hgb 15.2 H Hct 46.9 MCV 87.3 MCH 28.3 MCHC 32.4 RDW Std Deviation 46.3 H RDW Coeff of Tamir 14.6 Plt Count 472 H MPV 11.0 Immature Gran % (Auto) Neut % (Auto) Lymph % (Auto) [place] % (Auto) Eos % (Auto) Baso % (Auto) Absolute Neuts (auto) Absolute Lymphs (auto) Nucleated RBC % PT Cancelled INR Cancelled APTT Cancelled Sodium Potassium Chloride Carbon Dioxide Anion Gap BUN Creatinine 0.89 Estim Creat Clear Calc 90.46 Est GFR (MDRD) Af Amer 99 Est GFR (MDRD) Non-Af 81 BUN/Creatinine Ratio Glucose Uric Acid 10.1 H Calcium Total Bilirubin Direct Bilirubin AST 46 H ALT 37 Alkaline Phosphatase Total Protein Albumin Globulin Albumin/Globulin Ratio TSH Free T4 Urine Color Urine Clarity Urine pH Ur Specific [place] Urine Protein Urine Glucose (UA) Urine Ketones Urine Occult Blood Urine Nitrite Urine Bilirubin Urine Urobilinogen Ur Leukocyte Esterase Urine RBC Urine WBC Ur Squamous Epith Cells Urine Bacteria Hyaline Casts Urine Mucus U Random Total Protein Urine Creatinine Protein/Creatinin Ratio Urine Opiates Screen Urine Methadone Screen Ur Barbiturates Screen Ur Phencyclidine Scrn Ur Amphetamines Screen U Methamphetamin-MDMA U Benzodiazepines Scrn Urine Cocaine Screen U Cannabinoids Screen Ur Drug Screen Comment RPR Chlam trachomat DNA PCR Hep Bs Antigen Hepatitis C Antibody HIV 1&2 Antibody N.gonorrhoeae DNA (PCR) Rubella IgG Antibody Group B Strep DNA Specimen Comment Blood Type Antibody Screen Crossmatch 05/07/19 05/07/19 05/07/19 16:00 16:00 16:00 WBC RBC Hgb Hct MCV MCH MCHC RDW Std Deviation RDW Coeff of Tamir Plt Count MPV Immature Gran % (Auto) Neut % (Auto) Lymph % (Auto) [place] % (Auto) Eos % (Auto) Baso % (Auto) Absolute Neuts (auto) Absolute Lymphs (auto) Nucleated RBC % PT INR APTT Sodium 134 L Potassium 5.3 H Chloride 103 Carbon Dioxide 23.0 Anion Gap 8 BUN 18 Creatinine 0.90 Estim Creat Clear Calc 89.45 Est GFR (MDRD) Af Amer 98 Est GFR (MDRD) Non-Af 81 BUN/Creatinine Ratio 20.0 Glucose 76 Uric Acid Calcium 9.1 Total Bilirubin 0.40 Direct Bilirubin AST 44 H ALT 37 Alkaline Phosphatase 210 H Total Protein 7.6 Albumin 3.0 L Globulin 4.6 H Albumin/Globulin Ratio 0.7 L TSH Free T4 Urine Color Urine Clarity Urine pH Ur Specific [place] Urine Protein Urine Glucose (UA) Urine Ketones Urine Occult Blood Urine Nitrite Urine Bilirubin Urine Urobilinogen Ur Leukocyte Esterase Urine RBC Urine WBC Ur Squamous Epith Cells Urine Bacteria Hyaline Casts Urine Mucus U Random Total Protein Urine Creatinine Protein/Creatinin Ratio Urine Opiates Screen Urine Methadone Screen Ur Barbiturates Screen Ur Phencyclidine Scrn Ur Amphetamines Screen U Methamphetamin-MDMA U Benzodiazepines Scrn Urine Cocaine Screen U Cannabinoids Screen Ur Drug Screen Comment RPR Chlam trachomat DNA PCR Hep Bs Antigen Hepatitis C Antibody HIV 1&2 Antibody N.gonorrhoeae DNA (PCR) Rubella IgG Antibody < 0.2 Group B Strep DNA Specimen Comment Blood Type O POSITIVE Antibody Screen NEGATIVE Crossmatch 05/07/19 05/07/19 05/07/19 16:00 16:00 16:00 WBC RBC Hgb Hct MCV MCH MCHC RDW Std Deviation RDW Coeff of Tamir Plt Count MPV Immature Gran % (Auto) Neut % (Auto) Lymph % (Auto) [place] % (Auto) Eos % (Auto) Baso % (Auto) Absolute Neuts (auto) Absolute Lymphs (auto) Nucleated RBC % PT INR APTT Sodium Potassium Chloride Carbon Dioxide Anion Gap BUN Creatinine Estim Creat Clear Calc Est GFR (MDRD) Af Amer Est GFR (MDRD) Non-Af BUN/Creatinine Ratio Glucose Uric Acid Calcium Total Bilirubin Direct Bilirubin AST ALT Alkaline Phosphatase Total Protein Albumin Globulin Albumin/Globulin Ratio TSH Free T4 Urine Color Urine Clarity Urine pH Ur Specific [place] Urine Protein Urine Glucose (UA) Urine Ketones Urine Occult Blood Urine Nitrite Urine Bilirubin Urine Urobilinogen Ur Leukocyte Esterase Urine RBC Urine WBC Ur Squamous Epith Cells Urine Bacteria Hyaline Casts Urine Mucus U Random Total Protein Urine Creatinine Protein/Creatinin Ratio Urine Opiates Screen Urine Methadone Screen Ur Barbiturates Screen Ur Phencyclidine Scrn Ur Amphetamines Screen U Methamphetamin-MDMA U Benzodiazepines Scrn Urine Cocaine Screen U Cannabinoids Screen Ur Drug Screen Comment RPR NONREACTIVE Chlam trachomat DNA PCR Hep Bs Antigen Non-Reactive Hepatitis C Antibody Non-Reactive HIV 1&2 Antibody Non-Reactive N.gonorrhoeae DNA (PCR) Rubella IgG Antibody Group B Strep DNA Specimen Comment Blood Type Antibody Screen Crossmatch See Detail 05/07/19 05/07/19 05/07/19 16:05 17:18 17:18 WBC RBC Hgb Hct MCV MCH MCHC RDW Std Deviation RDW Coeff of Tamir Plt Count MPV Immature Gran % (Auto) Neut % (Auto) Lymph % (Auto) [place] % (Auto) Eos % (Auto) Baso % (Auto) Absolute Neuts (auto) Absolute Lymphs (auto) Nucleated RBC % PT INR APTT Sodium Potassium Chloride Carbon Dioxide Anion Gap BUN Creatinine Estim Creat Clear Calc Est GFR (MDRD) Af Amer Est GFR (MDRD) Non-Af BUN/Creatinine Ratio Glucose Uric Acid Calcium Total Bilirubin Direct Bilirubin AST ALT Alkaline Phosphatase Total Protein Albumin Globulin Albumin/Globulin Ratio TSH Free T4 Urine Color Yellow Urine Clarity Sl. Cloudy Urine pH 7.0 Ur Specific [place] 1.010 Urine Protein 500 H Urine Glucose (UA) Normal Urine Ketones 50 H Urine Occult Blood 25 H Urine Nitrite Negative Urine Bilirubin Negative Urine Urobilinogen Normal Ur Leukocyte Esterase 25 H Urine RBC 0-5 SEEN Urine WBC 0-5 SEEN Ur Squamous Epith Cells 0-5 SEEN Urine Bacteria 3+ Hyaline Casts 0-5 SEEN Urine Mucus 3+ U Random Total Protein 1984.1 H Urine Creatinine 161.00 Protein/Creatinin Ratio 97857 H Urine Opiates Screen Urine Methadone Screen Ur Barbiturates Screen Ur Phencyclidine Scrn Ur Amphetamines Screen U Methamphetamin-MDMA U Benzodiazepines Scrn Urine Cocaine Screen U Cannabinoids Screen Ur Drug Screen Comment RPR Chlam trachomat DNA PCR Negative Hep Bs Antigen Hepatitis C Antibody HIV 1&2 Antibody N.gonorrhoeae DNA (PCR) Negative Rubella IgG Antibody Group B Strep DNA Negative Specimen Comment Not Reportable Blood Type Antibody Screen Crossmatch 05/07/19 05/08/19 05/09/19 17:18 05:45 04:45 WBC 16.5 H RBC 4.51 Hgb 12.7 Hct 39.0 MCV 86.5 MCH 28.2 MCHC 32.6 RDW Std Deviation 46.3 H RDW Coeff of Tamir 14.7 H Plt Count 358 MPV 10.2 Immature Gran % (Auto) Neut % (Auto) Lymph % (Auto) [place] % (Auto) Eos % (Auto) Baso % (Auto) Absolute Neuts (auto) Absolute Lymphs (auto) Nucleated RBC % PT INR APTT Sodium 136 Potassium 4.1 Chloride 101 Carbon Dioxide 22.0 Anion Gap 13 BUN 12 Creatinine 0.63 Estim Creat Clear Calc 127.79 Est GFR (MDRD) Af Amer 147 Est GFR (MDRD) Non-Af 121 BUN/Creatinine Ratio 19.0 Glucose 91 Uric Acid Calcium 8.3 L Total Bilirubin 0.30 Direct Bilirubin 0.06 AST 37 ALT 31 Alkaline Phosphatase 140 H Total Protein 6.5 Albumin 2.3 L Globulin 4.2 Albumin/Globulin Ratio TSH 6.05 H Free T4 0.82 Urine Color Urine Clarity Urine pH Ur Specific [place] Urine Protein Urine Glucose (UA) Urine Ketones Urine Occult Blood Urine Nitrite Urine Bilirubin Urine Urobilinogen Ur Leukocyte Esterase Urine RBC Urine WBC Ur Squamous Epith Cells Urine Bacteria Hyaline Casts Urine Mucus U Random Total Protein Urine Creatinine Protein/Creatinin Ratio Urine Opiates Screen NEGATIVE Urine Methadone Screen NEGATIVE Ur Barbiturates Screen NEGATIVE Ur Phencyclidine Scrn NEGATIVE Ur Amphetamines Screen NEGATIVE U Methamphetamin-MDMA NEGATIVE U Benzodiazepines Scrn NEGATIVE Urine Cocaine Screen NEGATIVE U Cannabinoids Screen NEGATIVE Ur Drug Screen Comment RPR Chlam trachomat DNA PCR Hep Bs Antigen Hepatitis C Antibody HIV 1&2 Antibody N.gonorrhoeae DNA (PCR) Rubella IgG Antibody Group B Strep DNA Specimen Comment Blood Type Antibody Screen Crossmatch 05/09/19 04:45 WBC 17.1 H RBC 4.84 Hgb 13.7 Hct 40.9 MCV 84.5 MCH 28.3 MCHC 33.5 RDW Std Deviation 44.2 H RDW Coeff of Tamir 14.5 Plt Count 491 H MPV 10.2 Immature Gran % (Auto) 0.900 Neut % (Auto) 77.7 H Lymph % (Auto) 12.3 L [place] % (Auto) 8.5 Eos % (Auto) 0.2 Baso % (Auto) 0.4 Absolute Neuts (auto) 13.3 H Absolute Lymphs (auto) 2.11 Nucleated RBC % 0 PT INR APTT Sodium Potassium Chloride Carbon Dioxide Anion Gap BUN Creatinine Estim Creat Clear Calc Est GFR (MDRD) Af Amer Est GFR (MDRD) Non-Af BUN/Creatinine Ratio Glucose Uric Acid Calcium Total Bilirubin Direct Bilirubin AST ALT Alkaline Phosphatase Total Protein Albumin Globulin Albumin/Globulin Ratio TSH Free T4 Urine Color Urine Clarity Urine pH Ur Specific [place] Urine Protein Urine Glucose (UA) Urine Ketones Urine Occult Blood Urine Nitrite Urine Bilirubin Urine Urobilinogen Ur Leukocyte Esterase Urine RBC Urine WBC Ur Squamous Epith Cells Urine Bacteria Hyaline Casts Urine Mucus U Random Total Protein Urine Creatinine Protein/Creatinin Ratio Urine Opiates Screen Urine Methadone Screen Ur Barbiturates Screen Ur Phencyclidine Scrn Ur Amphetamines Screen U Methamphetamin-MDMA U Benzodiazepines Scrn Urine Cocaine Screen U Cannabinoids Screen Ur Drug Screen Comment RPR Chlam trachomat DNA PCR Hep Bs Antigen Hepatitis C Antibody HIV 1&2 Antibody N.gonorrhoeae DNA (PCR) Rubella IgG Antibody Group B Strep DNA Specimen Comment Blood Type Antibody Screen Crossmatch Current Medications Acetaminophen (Tylenol) 1,000 mg PO Q8H PRN PRN Reason: Pain Score 1-3/10 Al Hydroxide/Mg Hydroxide (Mylanta Ii) 15 - 30 ml PO Q4H PRN PRN PRN Reason: INDIGESTION Bisacodyl (Dulcolax) 10 mg RECTAL UD PRN PRN Reason: If no BM Calcium Gluconate () 1 gm IV X1 PRN PRN Reason: MAGNESIUM TOXICITY Hydralazine HCl (Apresoline Iv) 10 mg IV Q20M PRN; Protocol PRN Reason: SBP>160/110mmHg Last Admin: 05/08/19 19:29 Dose: 10 mg Documented by: Hydrocortisone (Hytone) 1 applic TOPICAL TID PRN PRN; Protocol PRN Reason: Discomfort Naloxone HCl 4 mg/ Dextrose 504 mls @ 0 mls/hr IV .Q0M PRN; Protocol PRN Reason: Respiratory depression Lactated Ringer's () 1,000 mls @ 60 mls/hr IV .[id number] NE Last Admin: 05/09/19 00:21 Dose: 60 mls/hr Documented by: Nicardipine HCl 25 mg/ Sodium (Chloride) 250 mls @ 50 mls/hr CONT INF .Q5H NE; Protocol Last Titration: 05/09/19 05:15 Dose: 4 mg/hr, 40 mls/hr Documented by: Labetalol HCl (Trandate) 20 - 40 mg IV Q10M PRN PRN; Protocol PRN Reason: BP>160/110mmHg Methylergonovine Maleate (Methergine) 0.2 mg IM X1 PRN PRN Reason: Uterine Atony Midazolam HCl (Versed) 2 mg IV Q5M PRN PRN Reason: SEIZURE Naloxone HCl (Narcan) 0.02 mg IV Q1M PRN PRN Reason: RR <10 and pt unresponsive Nifedipine (Procardia) 10 - 20 mg PO Q20M PRN; Protocol PRN Reason: SBP>160/110mmHg Last Admin: 05/08/19 19:39 Dose: 20 mg Documented by: Nifedipine (Procardia Xl) 30 mg PO DAILY [facility] Last Admin: 05/08/19 17:59 Dose: 30 mg Documented by: Ondansetron HCl (Zofran) 4 mg IV Q4H PRN PRN PRN Reason: Nausea Oxycodone HCl (Oxyir) 5 - 10 mg PO Q4H PRN PRN PRN Reason: Pain Score 4-10/10 Prochlorperazine Edisylate (Compazine Iv) 10 mg IV Q6H PRN PRN PRN Reason: NAUSEA Senna/Docusate Sodium (Senokot-S, Angela-Colace) 0 tablet PO DAILY PRN PRN Reason: Constipation Simethicone (Mylicon) 80 mg PO PCHS PRN PRN Reason: Indigestion/stomach pain Sodium Chloride () 5 - 15 ml IV UD PRN PRN Reason: SALINE FLUSH Assessment/Plan Active and Suspected Problems Severe pre-eclampsia (Acute) 34 weeks gestation of (Acute) Non-reassuring status (Acute) RECOMMENDATIONS: 1. Continue infusion of nicardipine with a goal to maintain a systolic pressure less than 160 mmHg. 2. Start scheduled Procardia XL 30 mg this morning, in hopes of weaning from nicardipine drip. 3. Depending on hemodynamics, scheduled Procardia can be increased versus introduction of p.o. labetalol regimen. IMPRESSIONS: 1. Severe preeclampsia, now POD #2 s/p emergent /hypertensive urgency The patient will be maintained on a continuous nicardipine infusion with a goal to titrate to a systolic blood pressure less than 160 mmHg. P.o. Procardia will be administered this morning hopes of weaning her nicardipine further. If needed, the Procardia dose can be increased versus adding p.o. labetalol to her regimen in an attempt to control her blood pressure parameters. The patient's underlying anxiety regarding her current situation is undoubtedly contributing to her hemodynamic status. UPDATE: I was notified by the nursing staff the patient was still requiring low-dose amounts of nicardipine, despite having been given Procardia XL 30 mg this morning. Therefore, an additional one-time dose of 30 mg of Procardia was ordered. Her daily Procardia XL dose was then increased to 60 mg daily, beginning tomorrow morning. This note was generated with [email or web address]ation software. It may contain incorrect words, spelling, and punctuation that were not noted in checking the note before signing. Code Visit Inpatient E&M: 41104 Init Hosp L3
[2019-05-09] MEDS: NIFEdipine 30 MG Tablet PO ×2 (08:34→12:15)
--- NOTE | 2019-05-09 08:49 | PN.OBGYN_ITS ---
Patient Problems: Active and Suspected Problems Severe pre-eclampsia (Acute) 34 weeks gestation of (Acute) Non-reassuring status (Acute) Subjective: Pt is emotional this morning as she desires to see her daughter. Denies STRONG, CP, SOB, vision changes, abd pain, N/V, leg pain. Lochia normal. Pumping. Ambulating and voiding without difficulty - Physical Exam Vitals/I&O's: Vital Signs Temp Pulse Resp BP Pulse Ox 97.5 F L 130 H 16 148/108 H 99 05/09/19 08:00 05/09/19 08:30 05/09/19 08:00 05/09/19 08:30 05/09/19 08:00 Oxygen Flow Rate (L/min) 10 Oxygen Delivery Method Room Air Weight: 154 lb 15.759 oz Body Mass Index (BMI) 24.6 Intake and Output for Last 24 Hours 05/07/19 05/08/19 05/09/19 23:59 23:59 23:59 Intake Total 3120.83 / 3120.83 5467.83 / 5474.08 1004.83 / 1004.83 Output Total 1885 / 1885 5025 / 5025 Balance 1235.83 / 1235.83 442.83 / 449.08 1004.83 / 1004.83 General: Alert, No apparent distress HEENT: Atraumatic Lungs: Normal air movement Abdomen: Soft, Non Tender, - - Dressing c/d/i Extremities: No Calf Tenderness, Edema Skin: No rashes Neurological: Neuro grossly intact Psych/Mental Status: Normal Affect, Appropriate Laboratory Results 05/09/19 04:45: Sodium 136, Potassium 4.1, Chloride 101, Carbon Dioxide 22.0, Anion Gap 13, BUN 12, Creatinine 0.63, Estim Creat Clear Calc 127.79, Est GFR (MDRD) Af Amer 147, Est GFR (MDRD) Non-Af 121, BUN/Creatinine Ratio 19.0, Gl ucose 91, Calcium 8.3 L, Total Bilirubin 0.30, Direct Bilirubin 0.06, AST 37, ALT 31, Alkaline Phosphatase 140 H, Total Protein 6.5, Albumin 2.3 L, Globulin 4.2, TSH 6.05 H, Free T4 0.82 05/09/19 04:45: WBC 17.1 H, RBC 4.84, Hgb 13.7, Hct 40.9, MCV 84.5, MCH 28.3, MCHC 33.5, RDW Std Deviation 44.2 H, RDW Coeff of Tamir 14.5, Plt Count 491 H, MPV 10.2, Immature Gran % (Auto) 0.900, Neut % (Auto) 77.7 H, Lymph % (Auto) 12.3 L, [place] % (Auto) 8.5, Eos % (Auto) 0.2, Baso % (Auto) 0.4, Absolute Neuts (auto) 13.3 H, Absolute Lymphs (auto) 2.11, Nucleated RBC % 0 Current Medications Acetaminophen (Tylenol) 1,000 mg PO Q8H PRN PRN Reason: Pain Score 1-3/10 Al Hydroxide/Mg Hydroxide (Mylanta Ii) 15 - 30 ml PO Q4H PRN PRN PRN Reason: INDIGESTION Bisacodyl (Dulcolax) 10 mg RECTAL UD PRN PRN Reason: If no BM Calcium Gluconate () 1 gm IV X1 PRN PRN Reason: MAGNESIUM TOXICITY Hydrocortisone (Hytone) 1 applic TOPICAL TID PRN PRN; Protocol PRN Reason: Discomfort Naloxone HCl 4 mg/ Dextrose 504 mls @ 0 mls/hr IV .Q0M PRN; Protocol PRN Reason: Respiratory depression Lactated Ringer's () 1,000 mls @ 60 mls/hr IV .[id number] [facility] Last Admin: 05/09/19 00:21 Dose: 60 mls/hr Documented by: Nicardipine HCl 25 mg/ Sodium (Chloride) 250 mls @ 50 mls/hr CONT INF .Q5H [facility]; Protocol Last Titration: 05/09/19 08:30 Dose: 5 mg/hr, 50 mls/hr Documented by: Methylergonovine Maleate (Methergine) 0.2 mg IM X1 PRN PRN Reason: Uterine Atony Naloxone HCl (Narcan) 0.02 mg IV Q1M PRN PRN Reason: RR <10 and pt unresponsive Nifedipine (Procardia Xl) 30 mg PO DAILY [facility] Last Admin: 05/09/19 08:34 Dose: 30 mg Documented by: Ondansetron HCl (Zofran) 4 mg IV Q4H PRN PRN PRN Reason: Nausea Oxycodone HCl (Oxyir) 5 - 10 mg PO Q4H PRN PRN PRN Reason: Pain Score 4-10/10 Prochlorperazine Edisylate (Compazine Iv) 10 mg IV Q6H PRN PRN PRN Reason: NAUSEA Senna/Docusate Sodium (Senokot-S, Angela-Colace) 0 tablet PO DAILY PRN PRN Reason: Constipation Simethicone (Mylicon) 80 mg PO PCHS PRN PRN Reason: Indigestion/stomach pain Sodium Chloride () 5 - 15 ml IV UD PRN PRN Reason: SALINE FLUSH Medical Necessity - Tobacco Use Smoking Status: Never smoker Assessment/Plan All Active Problems Severe pre-eclampsia (Acute) 34 weeks gestation of (Acute) Non-reassuring status (Acute) POD#2 s/p emergent C/S for pre-eclampsia with severe features - Discussed pt with Dr. Castrejon this morning, and appreciate assistance in care for BP management - Labs reviewed this morning - BP now mild range - No pre-e symptoms this morning - Continue care in the ICU at this time, and plan is to try to transition her to oral Procardia today - Pt anxious to leave. Discussed that it is strongly recommended that she stay for continued care given risks of stroke, seizure, and with elevated BP's - Dispo: Continue current care. Possible transfer out of the ICU later tonight or tomorrow morning pending how she does today, and recommendations from Dr. Castrejon. No plan for discharge today
--- NOTE | 2019-05-09 09:45 | CASEMGMT ---
Social Work Pt currently in ICU due to blood pressure issues. SW met with pt and pt mother in room. Pt confirming that she understands that BP is high and the her anxiety is likely contributing to high BP. SW encouraged pt to verbalize feelings surrounding need for hospitalization and separation from new baby who is currently at [facility] with her and from other two children who are home with pt grandfather. Pt down playing need for hospitalization and stating strong desire to return home. SW attempting to talk to pt about relaxation techniques although pt continues to verbalize that she does not need to be here and desire to be home with children. Pt calling in to speak with pt so SW left room to allow pt to speak with spouse. HUSSEIN Pereyra
--- NOTE | 2019-05-09 14:25 | CASEMGMT ---
RN VIRGILIO [employer] CM to room to meet with patient for initial transition planning/care coordination assessment. RN VIRGILIO introduced self and role at [facility]. Pt voices understanding and consents to assessment at this time. Pt resting in bed in no distress at this time. and mother @ bedside. Pt is A/O at this time and answers all questions appropriately. Care providers, pharmacy, and demographics verified/updated at this time. PCP: Does not have PCP established. Specialists: Jeimy Floresife. Preferred Pharmacy: [facility] Insurance: No insurance Prescription Benefit: None Living Will/HPOA: States she thinks has filled out POA paperwork in the past but is not sure. States would like to talk with SW to complete paperwork. MAHNAZ Love, made aware. Also given [employer] Chemist Rac Card. LNOK: HHC/SNF: No history of either and denies needs. Pt wishes to return home and denies having any discharge needs. CM to follow for any discharge planning/needs. Advised to ask for CM/SW if any further questions/concerns/needs arise. Voices understanding. PLAN: Home w/family support and discharge plans in place. Roderick TOTH RN, CM
--- NOTE | 2019-05-09 14:42 | CASEMGMT ---
Social Work Note SW received referral for advanced directives. SW attempted to meet with pt but pt currently pumping. MAHNAZ updated RN CM. RN CM states pt has social service rac card to complete at outpatient if needed. The hope is for pt to return to [facility] today. MAHNAZ updated Fanny LAMA [facility] SW regarding advanced directives request. Alba Luna POLICE BOOKING OFFICER, [employer]
[2019-05-10] VITALS (18 sets, daily range): BP systolic 146–195; BP diastolic 88–108; PULSE 79–121; RESP 17–23; TEMP 36.1–36.9; O2SAT 96–98
[2019-05-10] MEDS: Labetalol 100 MG Tablet PO (05:38)
[2019-05-10] MEDS: NIFEdipine 60 MG Tablet PO (06:26)
--- NOTE | 2019-05-10 06:40 | PCM.PN.INT ---
Subjective: The patient was seen and examined at the bedside this morning. Events from the last 24 hours have been reviewed. The patient is currently afebrile, hemodynamically stable and maintaining appropriate oxygen saturations room air. The patient's blood pressures have improved over the last 24 hours. She has been off of the continuous nicardipine drip since yesterday. Her Procardia XL had to be increased to 60 mg daily. Despite this, the patient continued to have elevated systolic pressures. Therefore, she was also started on scheduled p.o. labetalol this morning. She denies any chest discomfort or shortness of breath. She is anxious to be discharged home. Objective: The patient's most recent lab work, culture data and imaging studies have all been personally reviewed. General: Alert, Oriented x3, Cooperative, No apparent distress HEENT: Atraumatic, PERRLA, Normocephalic Oral: No Gingival or Mucosal Lesions/ Ulcerations Neck: Supple, No Nodes, Trachea Midline Lungs: Normal air movement, No rhonchi, No wheeze, No rales Cardiovascular: Regular rate, Regular Rhythm, Normal S1, Normal S2 Abdomen: Bowel Sounds Present, Soft, Non Tender Extremities: No clubbing, No cyanosis, No edema Skin: Incision Musculoskeletal: No Muscle Wasting Lymphatic: No Cervical, Supraclavicular, or Inguinal Adenopathy Neurological: Neuro grossly intact Psych/Mental Status: Anxious Vital Signs Temp Pulse Resp BP Pulse Ox 98.3 F 109 H 19 H 161/88 H 98 05/10/19 02:00 05/10/19 04:18 05/10/19 03:00 05/10/19 03:00 05/10/19 03:00 Oxygen Flow Rate (L/min) 10 Oxygen Delivery Method Room Air Weight: 141 lb 8.588 oz Body Mass Index (BMI) 24.6 Intake and Output for Last 24 Hours 05/08/19 05/09/19 05/10/19 23:59 23:59 23:59 Intake Total 5467.83 / 5474.08 1826.33 / 2676.33 1700 / 1700 Output Total 5025 / 5025 Balance 442.83 / 449.08 1826.33 / 2676.33 1700 / 1700 Labs (Last 48 Hours) 05/09/19 05/09/19 04:45 04:45 WBC 17.1 H RBC 4.84 Hgb 13.7 Hct 40.9 MCV 84.5 MCH 28.3 MCHC 33.5 RDW Std Deviation 44.2 H RDW Coeff of Tamir 14.5 Plt Count 491 H MPV 10.2 Immature Gran % (Auto) 0.900 Neut % (Auto) 77.7 H Lymph % (Auto) 12.3 L [place] % (Auto) 8.5 Eos % (Auto) 0.2 Baso % (Auto) 0.4 Absolute Neuts (auto) 13.3 H Absolute Lymphs (auto) 2.11 Nucleated RBC % 0 Sodium 136 Potassium 4.1 Chloride 101 Carbon Dioxide 22.0 Anion Gap 13 BUN 12 Creatinine 0.63 Estim Creat Clear Calc 127.79 Est GFR (MDRD) Af Amer 147 Est GFR (MDRD) Non-Af 121 BUN/Creatinine Ratio 19.0 Glucose 91 Calcium 8.3 L Total Bilirubin 0.30 Direct Bilirubin 0.06 AST 37 ALT 31 Alkaline Phosphatase 140 H Total Protein 6.5 Albumin 2.3 L Globulin 4.2 TSH 6.05 H Free T4 0.82 Microbiology 05/07/19 Unknown Genital vaginal Group B Streptococcus Culture - Preliminary Group B Beta Streptococcus is not isolated. Medical Necessity - Tobacco Use Smoking Status: Never smoker Assessment/Plan All Active Problems Severe pre-eclampsia (Acute) 34 weeks gestation of (Acute) Non-reassuring status (Acute) RECOMMENDATIONS: 1. Continue scheduled p.o. Procardia XL 60 mg and start labetalol 100 mg twice daily. 2. Defer timing of discharge to [facility] [facility]. IMPRESSIONS: 1. Severe preeclampsia, now POD #3 s/p emergent /hypertensive urgency The patient was initially maintained on a continuous Cardene infusion and was started on a p.o. antihypertensive regimen. Her blood pressures have improved with scheduled Procardia. I do feel that we are more likely to have improved blood pressure control by adding scheduled labetalol to the patient's Procardia versus increasing her Procardia dose further. Accordingly, she was placed on scheduled labetalol twice daily this morning. She has been off of the nicardipine drip now since yesterday. This note was generated with [employer] dictation software. It may contain incorrect words, spelling, and punctuation that were not noted in checking the note before signing. Code Visit Inpatient E&M: 97898 Subs Hosp L3
--- NOTE | 2019-05-10 07:45 | PN.OBGYN_ITS ---
Patient Problems: Active and Suspected Problems Severe pre-eclampsia (Acute) 34 weeks gestation of (Acute) Non-reassuring status (Acute) Subjective: Patient doing well. No STRONG, vision changes, RUQ pain, nausea, vomiting. No CP, SOB, lightheadedness, pain, leg pain. Lochia scant. Pumping without difficulty. Ambulating and voiding without difficulty. She says she has little to no pain from the . She continues to state that she strongly desires to go home this morning, as her baby is in [place] - Physical Exam Vitals/I&O's: Vital Signs Temp Pulse Resp BP Pulse Ox 98.3 F 88 19 H 160/105 H 97 05/10/19 02:00 05/10/19 07:42 05/10/19 06:00 05/10/19 06:00 05/10/19 06:00 Oxygen Flow Rate (L/min) 10 Oxygen Delivery Method Room Air Weight: 141 lb 8.588 oz Body Mass Index (BMI) 24.6 Intake and Output for Last 24 Hours 05/08/19 05/09/19 05/10/19 23:59 23:59 23:59 Intake Total 5467.83 / 5474.08 1826.33 / 2676.33 1700 / 1700 Output Total 5025 / 5025 Balance 442.83 / 449.08 1826.33 / 2676.33 1700 / 1700 General: Alert, No apparent distress HEENT: Atraumatic Lungs: Normal air movement Abdomen: Soft, Non Tender, Non-Distended, - - Dressing c/d/i Extremities: No edema Skin: No rashes Neurological: Neuro grossly intact Psych/Mental Status: Normal Affect, Appropriate Microbiology Past 72 Hours 05/07/19 Unknown Genital vaginal Group B Streptococcus Culture - Preliminary Group B Beta Streptococcus is not isolated. Current Medications Acetaminophen (Tylenol) 1,000 mg PO Q8H PRN PRN Reason: Pain Score 1-3/10 Al Hydroxide/Mg Hydroxide (Mylanta Ii) 15 - 30 ml PO Q4H PRN PRN PRN Reason: INDIGESTION Bisacodyl (Dulcolax) 10 mg RECTAL UD PRN PRN Reason: If no BM Calcium Gluconate () 1 gm IV X1 PRN PRN Reason: MAGNESIUM TOXICITY Hydrocortisone (Hytone) 1 applic TOPICAL TID PRN PRN; Protocol PRN Reason: Discomfort Naloxone HCl 4 mg/ Dextrose 504 mls @ 0 mls/hr IV .Q0M PRN; Protocol PRN Reason: Respiratory depression Nicardipine HCl 25 mg/ Sodium (Chloride) 250 mls @ 50 mls/hr CONT INF .Q5H [facility]; Protocol Last Admin: 05/10/19 07:33 Dose: Not Given Documented by: Labetalol HCl (Trandate) 20 mg IV Q4H PRN PRN PRN Reason: Sbp Greater Than 160 Labetalol HCl (Trandate) 100 mg PO BID [facility] Last Admin: 05/10/19 05:38 Dose: 100 mg Documented by: Methylergonovine Maleate (Methergine) 0.2 mg IM X1 PRN PRN Reason: Uterine Atony Naloxone HCl (Narcan) 0.02 mg IV Q1M PRN PRN Reason: RR <10 and pt unresponsive Nifedipine (Procardia Xl) 60 mg PO 0800 [facility] Last Admin: 05/10/19 06:26 Dose: 60 mg Documented by: Ondansetron HCl (Zofran) 4 mg IV Q4H PRN PRN PRN Reason: Nausea Oxycodone HCl (Oxyir) 5 - 10 mg PO Q4H PRN PRN PRN Reason: Pain Score 4-10/10 Prochlorperazine Edisylate (Compazine Iv) 10 mg IV Q6H PRN PRN PRN Reason: NAUSEA Senna/Docusate Sodium (Senokot-S, Angela-Colace) 0 tablet PO DAILY PRN PRN Reason: Constipation Simethicone (Mylicon) 80 mg PO PCHS PRN PRN Reason: Indigestion/stomach pain Sodium Chloride () 5 - 15 ml IV UD PRN PRN Reason: SALINE FLUSH Medical Necessity - Tobacco Use Smoking Status: Never smoker Assessment/Plan All Active Problems Severe pre-eclampsia (Acute) 34 weeks gestation of (Acute) Non-reassuring status (Acute) S/p emergent PLTCS for pre-eclampsia with severe features at 34 wks gestation. - S/p mag gtt 24 hrs - No pre-e symptoms - Last severe range BP was at 6am this morning. Received PO Labetalol and PO Procardia this morning, and blood pressure is now mild range. Discussed with patient that I recommend waiting to discharge her until she has had 24 hrs without a severe range blood pressure. Pt is anxious and strongly desires to go home today, and understands the risks of hypertension including but not limited to stroke, seizure, . She states she has been checking her blood pressure at home during the , and feels comfortable doing this at home. Reviewed possible discharge later this afternoon around 4-5pm if she has no additional severe range blood pressures. Instructed her to check her blood pressures at home, and call with a BP of 160/110 or greater. Reviewed importance of following up in our office for an incision check and BP check early this week, and she is agreeable to this. Discharge instructions reviewed
--- NOTE | 2019-05-10 07:55 | DCINST_ITS ---
Discharge Diet: No Restrictions Discharge Activity: May not drive while taking narcotic pain medications., May Shower, May Take a Tub Bath May resume sexual activity in: 6 weeks Weight Bearing Status: Weight bearing as tolerated Lifting Restrictions: No lifting greater than 20 pounds Call your doctor if your incision/area has: Sudden Increased Bleeding, Increased Pain/ Swelling, Increased Redness, Foul Smelling Discharge, Swelling at the incision site Call your doctor if you observe: Fever of 101 or Higher, Inability to urinate, Inability to have a bowel movement, Using more than one pad per hour, Shortness of breath, Dizziness, Fainting spells, Swelling in the ankles, Chest pain, Increased palpitations (irregular heartbeat), Calf discomfort, Uncontrolled pain Suture Line Care: Avoid Pulling/Pushing, Avoid Pinching/Bending Remove Dressing in (days):: 2 Cleanse incision/area with: Soap & Water Additional Instructions: If you experience any of the following, contact your healthcare provider. * Bleeding that soaks a pad every hour for 2 hours * Fever 100.4 or higher * Unrelieved incision or abdominal pain * Swelling, redness, discharge or bleeding from your incision or episiotomy site * Your incision begins to separate * Problems urinating (including inability to urinate or burning while urinating). * Visual changes * Severe headache * Flu-like symptoms * Pain or redness in one of both of your breasts * Pain, warmth, tenderness or swelling in your legs, especially the calf area * Frequent nausea and vomiting * Symptoms of depression or anxiety If you experience any of the following, call 911 or go to the nearest Emergency Room. * Chest pain * Problems breathing * Seizure activity * Partial or complete paralysis of a body part, slurred speech, weakness or drooping of the face, or a sudden inability to walk or hold your balance Allergies/Adverse Reactions: Allergies No Known Allergies Allergy (Verified 05/07/19 15:56) Medications to take at Discharge Magnesium 400 mg PO DAILY 05/07/19 Pnv No.95/Ferrous Fum/Folic AC [ Vitamin Tablet] 1 tab PO DAILY 05/07/19 Labetalol [Trandate (Beta Bal)] 100 mg PO BID #60 tab 05/10/19 NIFEdipine [Procardia Xl] 60 mg PO DAILY #30 tab 05/10/19 The following prescriptions were given: NIFEdipine [Procardia Xl] 60 mg PO DAILY #30 tab Prescription Printed Labetalol [Trandate (Beta Bal)] 100 mg PO BID #60 tab Prescription Printed Follow-Up: Call to make an appointment with your doctor for an incision check in 1-2 weeks. You will also need a 6 week post- follow up appointment. Test results from this visit will be discussed in further detail at your follow- up appointment, if applicable. When: 1 week for incision check and BP check Primary Care Physician: Care Physician,No Primary [Primary Care Provider] -
--- NOTE | 2019-05-10 07:57 | DS.PCM_ITS ---
Discharge Date and Diagnosis - Problem List Patient Problems: Active and Suspected Problems Severe pre-eclampsia (Acute) 34 weeks gestation of (Acute) Non-reassuring status (Acute) Date of Admission: 05/07/19 Date of Discharge: 05/10/19 - Primary Discharge Diagnosis Active and Suspected Problems Severe pre-eclampsia (Acute) 34 weeks gestation of (Acute) Non-reassuring status (Acute) Hospital Course and Treatment Summary of Care Provided: The patient is a 23 year old F [] Patient Problems: Active and Suspected Problems Severe pre-eclampsia (Acute) 34 weeks gestation of (Acute) Non-reassuring status (Acute) - Physical Exam Vitals/I&O's: Vital Signs Temp Pulse Resp BP Pulse Ox 98.3 F 88 19 H 160/105 H 97 05/10/19 02:00 05/10/19 07:42 05/10/19 06:00 05/10/19 06:00 05/10/19 06:00 Oxygen Flow Rate (L/min) 10 Oxygen Delivery Method Room Air Weight: 141 lb 8.588 oz Body Mass Index (BMI) 24.6 Intake and Output for Last 24 Hours 05/08/19 05/09/19 05/10/19 23:59 23:59 23:59 Intake Total 5467.83 / 5474.08 1826.33 / 2676.33 1700 / 1700 Output Total 5025 / 5025 Balance 442.83 / 449.08 1826.33 / 2676.33 1700 / 1700 Microbiology Past 72 Hours 05/07/19 Unknown Genital vaginal Group B Streptococcus Culture - Preliminary Group B Beta Streptococcus is not isolated. Current Medications Acetaminophen (Tylenol) 1,000 mg PO Q8H PRN PRN Reason: Pain Score 1-3/10 Al Hydroxide/Mg Hydroxide (Mylanta Ii) 15 - 30 ml PO Q4H PRN PRN PRN Reason: INDIGESTION Bisacodyl (Dulcolax) 10 mg RECTAL UD PRN PRN Reason: If no BM Calcium Gluconate () 1 gm IV X1 PRN PRN Reason: MAGNESIUM TOXICITY Hydrocortisone (Hytone) 1 applic TOPICAL TID PRN PRN; Protocol PRN Reason: Discomfort Naloxone HCl 4 mg/ Dextrose 504 mls @ 0 mls/hr IV .Q0M PRN; Protocol PRN Reason: Respiratory depression Nicardipine HCl 25 mg/ Sodium (Chloride) 250 mls @ 50 mls/hr CONT INF .Q5H [facility]; Protocol Last Admin: 05/10/19 07:33 Dose: Not Given Documented by: Labetalol HCl (Trandate) 20 mg IV Q4H PRN PRN PRN Reason: Sbp Greater Than 160 Labetalol HCl (Trandate) 100 mg PO BID [facility] Last Admin: 05/10/19 05:38 Dose: 100 mg Documented by: Methylergonovine Maleate (Methergine) 0.2 mg IM X1 PRN PRN Reason: Uterine Atony Naloxone HCl (Narcan) 0.02 mg IV Q1M PRN PRN Reason: RR <10 and pt unresponsive Nifedipine (Procardia Xl) 60 mg PO 0800 [facility] Last Admin: 05/10/19 06:26 Dose: 60 mg Documented by: Ondansetron HCl (Zofran) 4 mg IV Q4H PRN PRN PRN Reason: Nausea Oxycodone HCl (Oxyir) 5 - 10 mg PO Q4H PRN PRN PRN Reason: Pain Score 4-10/10 Prochlorperazine Edisylate (Compazine Iv) 10 mg IV Q6H PRN PRN PRN Reason: NAUSEA Senna/Docusate Sodium (Senokot-S, Angela-Colace) 0 tablet PO DAILY PRN PRN Reason: Constipation Simethicone (Mylicon) 80 mg PO PCHS PRN PRN Reason: Indigestion/stomach pain Sodium Chloride () 5 - 15 ml IV UD PRN PRN Reason: SALINE FLUSH Discharge Diet: No Restrictions Discharge Activity: May not drive while taking narcotic pain medications., May Shower, May Take a Tub Bath May resume sexual activity in: 6 weeks Weight Bearing Status: Weight bearing as tolerated Call your doctor if your incision/area has: Sudden Increased Bleeding, Increased Pain/ Swelling, Increased Redness, Foul Smelling Discharge, Swelling at the incision site Call your doctor if you observe: Fever of 101 or Higher, Inability to urinate, Inability to have a bowel movement, Using more than one pad per hour, Shortness of breath, Dizziness, Fainting spells, Swelling in the ankles, Chest pain, Increased palpitations (irregular heartbeat), Calf discomfort, Uncontrolled pain Suture Line Care: Avoid Pulling/Pushing, Avoid Pinching/Bending Remove Dressing in (days):: 2 Cleanse incision/area with: Soap & Water Home Medications: Medications to take at Discharge Magnesium 400 mg PO DAILY 05/07/19 Pnv No.95/Ferrous Fum/Folic AC [ Vitamin Tablet] 1 tab PO DAILY 05/07/19 Labetalol [Trandate (Beta Bal)] 100 mg PO BID #60 tab 05/10/19 NIFEdipine [Procardia Xl] 60 mg PO DAILY #30 tab 05/10/19 Following Prescrptions Were Given to Patient: NIFEdipine [Procardia Xl] 60 mg PO DAILY #30 tab Prescription Printed Labetalol [Trandate (Beta Bal)] 100 mg PO BID #60 tab Prescription Printed Primary Care Physician: Care Physician,No Primary [Primary Care Provider] - When: 1 week for incision check and BP check Medical Necessity - Tobacco Use Smoking Status: Never smoker
[2019-05-10] MEDS: Bisacodyl 10 MG Suppository RECTAL (09:16)
[2019-05-10] MEDS: 0.9% Saline Lock 10 ML Syringe IV (11:10)
--- NOTE | 2019-05-10 13:21 | PN_ITS ---
Progress Note Patient is signing out AMA. When the patient was seen in the office, she was reluctant to get medical care at the hospital. Extensive conversation was had with her, her , and her silk screen layout drafter. Maribel Darling and myself discussed the risks associated with pre- eclampsia with severe features, and that it was strongly recommended for her to go to L&D for further management. Discussed the risks including but not limited to stroke, intracranial hemorrhage, seizure, maternal , placental abruption, . The patient continued to be unsure of whether or not she wanted to receive care from us and go to the hospital. All of her questions were answered, and the importance of immediately going to L&D for care was stressed. After the extensive conversation, she decided to go to L&D for care. Once on L&D her BP's were persistently severe despite IV medication, and FHT was nonreassuring with concern for abruption given the pattern on toco. An emergent section was strongly recommended again given concern for stroke, intracranial hemorrhage, seizure, abruption, maternal and . The patient was unsure of whether or not she wanted to proceed with a section. Extensive conversation was had on why an emergent section was recommended, and all of her questions were answered. After discussed of r/b/a, the patient consented to and desired to proceed with the section. Today discussed with the patient that given that she is continuing to have severe range BP's, she cannot be discharged. The patient reports that she strongly desires to go home. Reviewed risks of going home with uncontrolled blood pressure which includes but is not limited to: stroke, intracranial hemorrhage, seizure, . Discussed that the recommendation is that she stay as an inpatient for continued blood pressure management and monitoring. Stated understanding of how difficult it must be to be from her new baby. The patient does have appropriate decision making capacity. Her affect is appropriate, and she is alert and oriented. She requests to leave against medical advice. She says she feels she does not respond well to medication, and that she believes if she leaves the hospital she will be less stressed and her blood pressure will improve. She says she had elevated blood pressure with her prior pregnancies, and she feels that the closeness with her babies helped to improve her blood pressure. Discussed that with how elevated her blood pressures are, this elevation is unlikely to be caused only by stress and that medication is necessary at this time to control her BP and keep her safe. She says she will take blood pressure medication as an outpatient, and she will monitor her blood pressure at home. She states she will follow up in the office this week. She says she understands that by leaving the hospital today she is doing so against medical advice, and she states she understands that she is at risk for continued elevated blood pressure, stroke, intracranial hemorrhage, seizure, , and other complications from uncontrolled hypertension. STROKE Vital Signs/Narrative: Vital Signs Temp Pulse Resp BP BP Pulse Ox 05/10/19 12:00 97.2 F L 108 H 17 159/108 H 98 05/10/19 11:36 91 05/10/19 11:31 83 19 H 146/96 H 05/10/19 11:05 112 H 20 H 168/101 H 98 05/10/19 10:45 101 H 170/102 H 05/10/19 10:00 100 18 195/107 H 98
--- NOTE | 2019-05-10 13:42 | NURSING ---
Patient chose to leave AMA. Dr. Lucero discussed with the patient the risks of leaving AMA. Instructions (ICU and OB) given to patient including prescriptions for labetalol and procardia. aware.
--- NOTE | 2019-05-15 11:37 | PCM.DC.SUM ---
Discharge Date and Diagnosis Date of Admission: 05/07/19 - Primary Discharge Diagnosis Preeclampsia with severe features at 34 weeks gestation and nonreassuring status Hospital Course and Treatment Operations: - - PLTCS Summary of Care Provided: The patient is a 23 year old F who was receiving care with the clay dry press helper. She presented to our office as a new patient at 34 weeks gestation of for elevated blood pressures in . In the office she was found to have persistent severe range blood pressures. After extensive discussion with the patient on the importance of going to the hospital for further management, the patient ultimately decided to go to labor and delivery at the hospital for management of her severe range blood pressures. At the hospital she was treated with multiple doses of IV antihypertensives, and her blood pressures were persistently severe. The heart tracing had an isolated deceleration followed by minimal variability. She had known preeclampsia with an elevated protein creatinine ratio that was done through her clay dry press helper. An extensive discussion again was had discussing the importance of delivery by section. The patient was hesitant to be delivered, and after discussion of risks and benefits and alternatives she consented to a section. She was taken for an emergent primary section for preeclampsia with severe features and nonreassuring heart tracing. Postoperatively her blood pressures remained in the severe range and were not well controlled with oral antihypertensives. She was transferred to the ICU on a nicardipine drip and she was co managed with the medicine team. Once the drip was titrated off her blood pressures remain persistently in the severe range and were not well controlled with oral antihypertensives. On postoperative day 2 the patient left AGAINST MEDICAL ADVICE. - Physical Exam Vitals/I&O's: Vital Signs Temp Pulse Resp BP Pulse Ox 97.2 F L 108 H 17 159/108 H 98 05/10/19 12:00 05/10/19 12:00 05/10/19 12:00 05/10/19 12:00 05/10/19 12:00 Oxygen Flow Rate (L/min) 10 Oxygen Delivery Method Room Air Weight: 141 lb 8.588 oz Body Mass Index (BMI) 24.6 Discharge Diet: No Restrictions Discharge Activity: May not drive while taking narcotic pain medications., May Shower, May Take a Tub Bath May resume sexual activity in: 6 weeks Weight Bearing Status: Weight bearing as tolerated Call your doctor if your incision/area has: Sudden Increased Bleeding, Increased Pain/ Swelling, Increased Redness, Foul Smelling Discharge, Swelling at the incision site Call your doctor if you observe: Fever of 101 or Higher, Inability to urinate, Inability to have a bowel movement, Using more than one pad per hour, Shortness of breath, Dizziness, Fainting spells, Swelling in the ankles, Chest pain, Increased palpitations (irregular heartbeat), Calf discomfort, Uncontrolled pain Suture Line Care: Avoid Pulling/Pushing, Avoid Pinching/Bending Remove Dressing in (days):: 2 Cleanse incision/area with: Soap & Water Home Medications: Medications to take at Discharge Magnesium 400 mg PO DAILY 05/07/19 Pnv No.95/Ferrous Fum/Folic AC [ Vitamin Tablet] 1 tab PO DAILY 05/07/19 Labetalol [Trandate (Beta Bal)] 100 mg PO BID #60 tab 05/10/19 NIFEdipine [Procardia Xl] 60 mg PO DAILY #30 tab 05/10/19 Following Prescrptions Were Given to Patient: NIFEdipine [Procardia Xl] 60 mg PO DAILY #30 tab Prescription Printed Labetalol [Trandate (Beta Bal)] 100 mg PO BID #60 tab Prescription Printed Primary Care Physician: Care Physician,No Primary [Primary Care Provider] - When: 1 week for incision check and BP check Medical Necessity - Tobacco Use Smoking Status: Never smoker Meaningful Use Info Meaningful Use Diagnoses (Choose all that apply): None applicable
== END 2019-05-10 14:00 | disposition home or self-care (01) | DRG 788 ==
LOC: WP 05-08 07:02 → ICU 05-08 20:27
PROVIDERS: Obstetrics & Gynecology; Admitting Provider Obstetrics & Gynecology; Referring Provider Obstetrics & Gynecology; Visit Provider Obstetrics & Gynecology
DX: O14.14 Severe pre-eclampsia complicating childbirth (principal); I16.0 Hypertensive urgency; O76 Abnormality in fetal heart rate and rhythm complicating labor and delivery; O60.14X0 Preterm labor third trimester with preterm delivery third trimester, not applicable or unspecified; O69.81X0 Labor and delivery complicated by cord around neck, without compression, not applicable or unspecified; Z3A.34 34 weeks gestation of pregnancy; Z37.0 Single live birth; Z53.29 Procedure and treatment not carried out because of patient's decision for other reasons
CPT/HCPCS: 59025; 59050; 80048; 80053; 80076; 80307; 81001; 82565; 82570; 84156; 84439; 84443; 84450; 84460; 84550; 85025; 85027; 86592; 86703; 86762; 86803; 86850; 86900; 86901; 86920; 87081; 87340; 87491; 87591; 87653; 99218; J7050; J7120; A4216; G0378; J0702; J2405